=== PATIENT | female | born 2000 | race Caucasian/White ===

== ENCOUNTER 2023-08-01 08:20 | Emergency (ER) | payer MEDICAID ==
[~2023-08-01] VITALS: Ht 162.6 cm; Wt 69.0 kg
[2023-08-01 08:29] VITALS: TEMP 97.9; O2SAT 100
[2023-08-01] MEDS ORDERED: ACETAMINOPHEN 325MG TABLET PO NR (09:30)
[2023-08-01 14:36] VITALS: BP 90/55; PULSE 89; RESP 17
== END 2023-08-01 14:39 | disposition home or self-care (01) ==
LOC: ER 08:20
DX: S00.81XA Abrasion of other part of head, initial encounter (principal); S83.92XA Sprain of unspecified site of left knee, initial encounter; S63.501A Unspecified sprain of right wrist, initial encounter; V49.59XA Passenger injured in collision with other motor vehicles in traffic accident, initial encounter; Y93.89 Activity, other specified; Y92.89 Other specified places as the place of occurrence of the external cause; Y99.8 Other external cause status
CPT/HCPCS: 73110; 73562; 99284; Z7610 ×3